=== PATIENT | female | born 1940 | race Caucasian/White ===

== ENCOUNTER 2019-05-28 09:45 | Inpatient (IN) | payer MEDICARE, BC ==
[2019-05-28] VITALS (399 sets, daily range): BP systolic 114–130; BP diastolic 49–95; PULSE 61–79; TEMP 98–98.3; O2SAT 55–99
[~2019-05-28] VITALS: Ht 149.9 cm; Wt 64.8 kg
--- NOTE | 2019-05-28 10:15 | NUR ---
PT BEING TRANSFERRED FROM [facility] BY EMS. REPORT RECEIVED FROM ODETTE AT [facility].
--- NOTE | 2019-05-28 10:45 | NUR ---
PT ARRIVED BY EMS FROM TRANSFER FROM [facility]. PT CURRENTLY HAS DOPAMINE INFUSING AT 10 MCG\KG\MIN AND EPINEPHRINE AT 0.05MG\KG\MIN. PT BEING TRANSCUTANEOUSLY PACED AT 70 BPM WITH MA OF 105. PT AWAKE, ALERT, AND ORIENTED. PT ON 4L NC AND DOES NOT APPEAR TO BE IN ANY ACUTE DISTRESS. PT TRANSFERRED TO ICU BED.
--- NOTE | 2019-05-28 11:15 | NUR ---
ANALIA WITH BILLING COLLECTIONS SPECIALIST ARRIVED TO URGENTLY TAKE PATIENT FOR PACEMAKER PLACEMENT. ASSISTED ANALIA WITH TRANSPORTING PATIENT TO BILLING COLLECTIONS SPECIALIST. DOPAMINE AND EPI GTT TRANSFERRED WITH PATIENT. ZOLL TRANSFERRED WITH PATIENT, PT TRANSCUTANEOUSLY PACED UNTIL ARRIVAL TO BILLING COLLECTIONS SPECIALIST. PT HAS RIGH IJ TLC IN PLACE AND SEAMUS.
[2019-05-28] MEDS ORDERED: ASPIRIN 81M81 MG/TA2 PO (11:33)
[2019-05-28] MEDS ORDERED: COREG12.5 MG PO (11:33)
[2019-05-28] MEDS ORDERED: NORVASC 10MG10 MG PO (11:33)
[2019-05-28] MEDS ORDERED: CENTRUM SILVER1 CTB PO (11:34)
[2019-05-28] MEDS ORDERED: HCTZ12.5TAB PO (11:34)
[2019-05-28] MEDS ORDERED: PREMARIN .3MG0.3 MG PO (11:35)
[2019-05-28] MEDS ORDERED: COZAAR100 MG PO (11:35)
[2019-05-28] MEDS ORDERED: GLUCOPHAGE500 MG/TAB PO (11:35)
[2019-05-28] MEDS ORDERED: SENNA-LAX8.6 MG PO (11:36)
[2019-05-28] MEDS ORDERED: TYLENOL 325MG325 MG PO (11:36)
--- NOTE | 2019-05-28 11:44 | NUR ---
SEE MERGE DOCUMENTATION FOR MEDICATION ADMINISTRATION TIMES AND INTRA/POST PROCEDURE SEDATION ASSESSMENTS.
--- NOTE | 2019-05-28 11:45 | NUR ---
PT'S SON CALLED AND UPDATED ON PATIENT'S STATUS.
[2019-05-28 12:33] LABS: INR 1.1 (0.8-3.0); PROTHROMBIN TIME 12.4 SECONDS (9.7-12.8)
--- NOTE | 2019-05-28 13:16 | NUR ---
REPORT RECEIVED FROM ANALIA IN MUSIC INDUSTRY INTERN. PT DESATED AND BECAME HYPOTENSIVE DURING PROCEDURE WITH SEDATION. PT GIVEN NARCAN. PT TOLERATED PROCEDURE WELL AFTER THAT. ANALIA DID NOTE THAT WHEN PACER PADS WERE REMOVED HE DID NOTE 4 QUARTER SIZED ROWE TO PATIENT'S CHEST FROM [facility]. PT NO LONGER REQUIRING EPI AND DOPAMINE GTT. PT AWAKE, ALERT, AND MOSTLY ORIENTED. VS: PULSE 70 (PACED), BP 123/60, O2 SAT 96-98% ON 2L NC.
--- NOTE | 2019-05-28 13:30 | NUR ---
PT RETURNED FROM BAG LOADER. PT SLIGHTLY DROWSY BUT EASILY AROUSABLE. PT HAS VENOUS SHEATH IN PLACE, BIJAL FROM BAG LOADER PRESENT TO REMOVE SHEATH. PT DENIES ANY PAIN AT THIS TIME. DAMIAN, FLOAT TENDER, PRESENT TO PERFORM ECHO. HR 63, BP 128/62, RESP 20, O2 SAT 97% ON 2L NC.
[2019-05-28] MEDS ORDERED: ZOLOFT 50MG50 MG PO (13:48)
--- NOTE | 2019-05-28 13:51 | NUR ---
PT'S SON CALLED AND UPDATED ON PATIENT'S STATUS.
--- NOTE | 2019-05-28 14:00 | NUR ---
VENOUS SHEATH FROM LEFT GROIN REMOVED. AREA COVERED WITH GAUZE AND TEGADERM. DRESSING CLEAN, DRY, AND INTACT. LEFT ARM SLING APPLIED TO REMIND PATIENT TO NOT MOVE LEFT ARM. PT AWAKE, ALERT AND ORIENTED. PT SLIGHLTY DROWSY. CALL LIGHT IN REACH.
[2019-05-28 15:24] LABS: HEMOGLOBIN 10.5 g/dl (12.5-16.0); MEAN CELL VOLUME 105 fl (80.0-100.0); MEAN CORPUSCULAR HEMOGLOBIN 35 pg (27.0-31.0); MEAN CORPUSCULAR HGB CONC 34 g/dl (33.0-37.0); MEAN PLATELET VOLUME 9.8 fl (7.4-10.4); PLATELET COUNT 212 K/mm3 (130-400); RED BLOOD COUNT 2.98 M/mm3 (4.10-5.30); REDCELL DISTRIBUTION WIDTH-CV 13.1 % (11.5-14.5)
[2019-05-28 15:29] LABS: HEMATOCRIT 31.3 % (37.0-47.0)
[2019-05-28 15:33] LABS: CALCIUM 8.4 mg/dL (8.4-10.2); CREATININE, serum 1.18 (0.52-1.25); MAGNESIUM 1.8 mg/dL (1.6-2.3); PHOSPHOROUS 4.2 mg/dL (2.5-4.5); POTASSIUM 3.7 mmol/L (3.4-5.0)
--- NOTE | 2019-05-28 15:56 | NUR ---
IV TO RIGHT AC REMOVED D/T HAVING CENTRAL LINE.
[2019-05-28 17:44] LABS: BAND 2 % (0-10); LYMPHOCYTE 17 % (20.0-51.0); NEUTROPHILS 75 % (42.0-75.2)
[2019-05-28 17:45] LABS: PLATELET ESTIMATE NORMAL (NORMAL)
--- NOTE | 2019-05-28 19:15 | NUR ---
Bedside report received from JOSE CARLOS Cameron. Patient resting in bed with no current needs. Will continue to monitor. Call light within reach.
--- NOTE | 2019-05-28 19:23 | NUR ---
BEDSIDE REPORT TO MARTIN BRANCH
[2019-05-29] VITALS (34 sets, daily range): BP systolic 122–156; BP diastolic 43–71; PULSE 65–79; TEMP 98.1–99.5; O2SAT 95–99
[2019-05-29 03:00] LABS: MUCOUS Present /lpf; PH 5 (5-8); SQUAMOUS EPITHELIAL 0-2 /hpf; URINE APPEARANCE Hazy; URINE BACTERIA None Seen /hpf; URINE BILIRUBIN Negative (NEGATIVE); URINE BLOOD 3+ (NEGATIVE); URINE COLOR Yellow; URINE GLUCOSE Negative (NEGATIVE); URINE KETONE Trace (NEGATIVE); URINE LEUKOCYTE ESTERASE 1+ (NEGATIVE); URINE NITRATE Negative (NEGATIVE); URINE PROTEIN(semi-quant) 1+ (NEGATIVE); URINE RBC 20-50 /hpf; URINE UROBILINOGEN Negative (NEGATIVE); URINE WBC 20-50 /hpf
[2019-05-29 03:03] LABS: COLLECTION METHOD CATHETER
--- NOTE | 2019-05-29 06:25 | NUR ---
Report called to JOSE CARLOS Hernandez on medical floor. Patient being transferred at this time. No further needs.
--- NOTE | 2019-05-29 08:50 | NUR ---
BELGICA NOTE: care taken over at beginning of shift. PT AOX4 but forgetful. was anxious this morning because she 'did not feel comfortable in new room'. nurse re-oriented pt and called son and who helped pt feel better. denies pain. sling to left arm. gauze and tape dressing to lt uper chest incision dry, skin folded over but intact. 3 blister areas, dry, dark red bruising around PPM site STADIUM ATTENDANT at this time. lt groin clean pressure gauze dressing intact. on 3L NC. PT encouraged to eat more bfast. independent with meal. RIJ intact.
[2019-05-29 11:56] LABS: BASO % 0.2 % (0.0-2.0); EOS # 0.1 (0.0-0.7); EOS % 0.7 % (0-4.0); GRAN # 9.8 (1.4-6.5); GRAN % 81.9 % (42.2-75.2); HEMOGLOBIN 10.5 g/dl (12.5-16.0); LYMPH # 1.2 (1.2-3.4); LYMPH % 9.9 % (20.0-51.0); MEAN CELL VOLUME 105 fl (80.0-100.0); MEAN CORPUSCULAR HEMOGLOBIN 35 pg (27.0-31.0); MEAN CORPUSCULAR HGB CONC 34 g/dl (33.0-37.0); MEAN PLATELET VOLUME 9.8 fl (7.4-10.4); MONO # 0.8 (0.1-0.6); MONO % 6.9 % (1.7-9.3); PLATELET COUNT 177 K/mm3 (130-400); RED BLOOD COUNT 2.98 M/mm3 (4.10-5.30); REDCELL DISTRIBUTION WIDTH-CV 13.2 % (11.5-14.5)
[2019-05-29 11:58] LABS: HEMATOCRIT 31.3 % (37.0-47.0)
[2019-05-29 12:07] LABS: CALCIUM 8.7 mg/dL (8.4-10.2); CREATININE, serum 0.73 (0.52-1.25); POTASSIUM 3.5 mmol/L (3.4-5.0)
--- NOTE | 2019-05-29 12:15 | NUR ---
First visit from the die try out worker. No needs right now.
--- NOTE | 2019-05-29 12:22 | NUR ---
SEAMUS DC'D @ 120 POER ORDER. PT TOLERATED PROCEDURE. PLACED IN BRIEF
--- NOTE | 2019-05-29 16:22 | NUR ---
pt reported need to void @ 1600. requested to transfer to [facility]. this nurse and aide attempted to toilet but pt had a hard time standing up. was able to steadily sit on side of bed. required help moving legs off bed. pt instead toiletted on bedpan and voided 200cc hazy yellow urine. post void residual scanned and found to be 20cc max volume. confusion noted with pt hallucinating a baby and in the room. remains oriented x3. mild anxiety about being alone noted.
--- NOTE | 2019-05-29 16:34 | NUR ---
Veterinary Technician Instructor met with patient to discuss discharge planning. Patient lives at [facility], which is an Independent Living building in [place]. Patient sees Dr. Flynn for primary care and has her medications delivered to her home in bubble packs. Patient has a walker and states she does okay at home but has had balance issues. DINORAH reviewed PT/OT recommendations with patient who advised SW call her son, Dakota (ph#[phone]) or , Nahum (ph#[phone]) to discuss placement. SW contacted Dakota who was with his father, Nahum. Dakota and Nahum are in agreement with PT/OT recommendations. First preference is [facility] and second preference is [facility] in [place]. Dakota reports he and his brother Arian are patient's DPOA-HC. Dakota advised [facility] would have a copy. DINORAH contacted IPR Director, Esmer and faxed referral to [facility]. DINORAH contacted Nisha, Independent Living Coordinator who advised she did not have a copy of patient's DPOA-HC documents. DINORAH to continue to follow.
--- NOTE | 2019-05-29 20:00 | NUR ---
At time of assessment, patient is awake in bed watching TV. She is alert but hallucinates there being spiders on the rivas where, in reality they are nail holes. She also thinks her neice is here to visit her. She is reoriented and seems to understand she is just hallucinating. She is oriented to self but does not know the year or that she is in the hospital. Her lung sounds are clear and heart sounds are normal/regular. She has 1+ edema bilaterally in lower extremities. She does not complain of any pain at this time. She is on 3L O2 via nasal cannula and appears to be breathing well at this time. Will continue to monitor.
[2019-05-30 03:44] VITALS: BP 151/72; PULSE 69; TEMP 99.9
--- NOTE | 2019-05-30 05:22 | NUR ---
Patient has slept throughout the majority of the night. She was awake in the beginning of the shift, having hallucinations but she has been pleasantly confused with no agitation. She has not complained of pain other than mild soreness in her pacemaker insertion site. Will continue to monitor.
--- NOTE | 2019-05-30 07:15 | NUR ---
Received report from offgoing shift.
[2019-05-30 07:41] LABS: BASO % 0.5 % (0.0-2.0); EOS # 0.2 (0.0-0.7); EOS % 2.3 % (0-4.0); GRAN # 5.7 (1.4-6.5); GRAN % 72.8 % (42.2-75.2); LYMPH # 1.2 (1.2-3.4); LYMPH % 15.3 % (20.0-51.0); MEAN CELL VOLUME 106 fl (80.0-100.0); MEAN CORPUSCULAR HGB CONC 33 g/dl (33.0-37.0); MEAN PLATELET VOLUME 10.3 fl (7.4-10.4); MONO # 0.7 (0.1-0.6); MONO % 8.7 % (1.7-9.3); PLATELET COUNT 161 K/mm3 (130-400); RED BLOOD COUNT 2.74 M/mm3 (4.10-5.30)
[2019-05-30 07:46] LABS: HEMOGLOBIN 9.7 g/dl (12.5-16.0); MEAN CORPUSCULAR HEMOGLOBIN 35 pg (27.0-31.0)
[2019-05-30 07:56] LABS: CALCIUM 8.5 mg/dL (8.4-10.2); CREATININE, serum 0.6 (0.52-1.25); POTASSIUM 3.2 mmol/L (3.4-5.0)
[2019-05-30 08:13] VITALS: BP 150/69; PULSE 73; TEMP 98
[2019-05-30 12:22] VITALS: BP 139/49; PULSE 69; TEMP 98.9
[2019-05-30 16:30] VITALS: BP 154/58; PULSE 68; TEMP 98.5
--- NOTE | 2019-05-30 18:16 | NUR ---
Patient is awake and alert sitting up in bed. Was assisted with cutting meat and arranging dishes on tray. Is denying pain. External female catheter is draining well. She states she has no discomfort to her tiffanie area. Call light and personal items are withinr reach.
--- NOTE | 2019-05-30 19:00 | NUR ---
Pt report received from Maria T BRANCH at bedside. Pt is resting peacefully in bed with no complaints at this time. Pt has a female external catheter in place that is draining well as evidenced by urine in suction canister and urined noted to be moving through the suction tubing. Clear yellow urine noted. Pt resting in bed with TV on and left arm sling not being worn. Pt educated on the importance of not moving her arm above her head or outward from body as these are movements that the sling is meant to prohibit due to her recent pacemaker placement surgery and medical restrictions on left arm movement. Pt states understanding. Call light within reach, No s/s of distress noted. Will continue to monitor.
[2019-05-30 19:16] VITALS: BP 158/61; PULSE 72; TEMP 97.9
[2019-05-30 23:21] VITALS: BP 140/76; PULSE 66; TEMP 98.5
--- NOTE | 2019-05-30 23:53 | NUR ---
Pt has been resting peacefully in bed during the shift, is A&Ox4, compliant with care and medication regimen. Pt was just cleaned up by the DOCUMENT MANAGEMENT SPECIALIST due to female external catheter apparently becoming clogged and Pt and bedding wet with urine. Earlier in the shift Pt family contacted this conventional mortgage underwriter asking to speak to Pt. This conventional mortgage underwriter took staff phone down to Pt room and allowed Pt to talk with son for a few minutes. When it became apparent that more time was needed this conventional mortgage underwriter provided education to family on how to directly call pt room and education to Pt on how to use room phone. This conventional mortgage underwriter apologized to family and Pt and explained that this was the only phone that other staff, other families, and physicians could contact this conventional mortgage underwriter on. Pt and family states understanding of need to use room phone. This conventional mortgage underwriter stayed with the Pt until family called back to ensure that Pt was able to answer phone. Pt remains in stable condition at this time. Will continue to monitor.
--- NOTE | 2019-05-31 01:50 | NUR ---
Pt resting peacefully in bed peacefully with eyes closed and no s/s of pain or distress noted. Call light within reach. Will continue to monitor.
--- NOTE | 2019-05-31 01:52 | NUR ---
Pt resting in bed with eyes open and resting peacefully with no complaints of pain and no s/s of distress noted. Pt is A&Ox4 and requests a new ice cup which this specification writer provides. Therapeutic conversation provided while Pt discussed her hopes of going home soon. Call light within reach and Pt appears to be compliant with her left arm restrictions. Dressing to Right IJ remains clean dry and intact. Dressing to left chest where pacemaker was placed remains clean dry and intact. Will continue to monitor.
[2019-05-31 03:16] VITALS: BP 126/57; PULSE 68; TEMP 98.4
--- NOTE | 2019-05-31 04:56 | NUR ---
Pt has recently fallen asleep after spending a good portion of the shift lying in bed awake alternating between watching tv and resting in her semi-lit room. Pt has remained in stable condition during the shift with no s/s of distress noted. Pt has had no compliants of pain or discomfort and dressings have remained clean dry and intact. Call light within reach. Will continue to monitor.
--- NOTE | 2019-05-31 07:09 | NUR ---
Pt report given to Yadira BRANCH at bedside.
[2019-05-31 08:06] LABS: BASO % 0.3 % (0.0-2.0); EOS # 0.3 (0.0-0.7); EOS % 3.5 % (0-4.0); GRAN # 7.2 (1.4-6.5); GRAN % 75.3 % (42.2-75.2); HEMOGLOBIN 10.2 g/dl (12.5-16.0); LYMPH # 1.2 (1.2-3.4); LYMPH % 12.9 % (20.0-51.0); MEAN CELL VOLUME 103 fl (80.0-100.0); MEAN CORPUSCULAR HEMOGLOBIN 35 pg (27.0-31.0); MEAN CORPUSCULAR HGB CONC 34 g/dl (33.0-37.0); MONO # 0.7 (0.1-0.6); MONO % 7.6 % (1.7-9.3); PLATELET COUNT 177 K/mm3 (130-400); RED BLOOD COUNT 2.92 M/mm3 (4.10-5.30); REDCELL DISTRIBUTION WIDTH-CV 12.8 % (11.5-14.5)
[2019-05-31 08:09] VITALS: BP 176/67; PULSE 72; TEMP 99.9
[2019-05-31 08:09] LABS: HEMATOCRIT 30.2 % (37.0-47.0)
[2019-05-31 08:12] LABS: CALCIUM 8.2 mg/dL (8.4-10.2); CREATININE, serum 0.54 (0.52-1.25); POTASSIUM 3.9 mmol/L (3.4-5.0)
--- NOTE | 2019-05-31 10:44 | NUR ---
Assessment complete. Pt resting in bed, awoke to my voice. She is alert and oriented x3, sense of time is innacurate. She denies pain at this time. Scabs on chest from external pacer are noted, no active bleeding or drainage. PAcer site dressing is CD&I, small amount of swelling is noted, pt denies pain in that area. External catheter removed per Drs orders. Noticable tremors while functioning, pt remains able to hold cups and take medications independently. She took her PO medications well. No other needs were expressed at this time. Call light is in reach.
[2019-05-31 12:01] VITALS: BP 157/71; PULSE 85; TEMP 98.2
[2019-05-31 16:12] VITALS: BP 157/59; PULSE 72; TEMP 98.2
--- NOTE | 2019-05-31 17:26 | NUR ---
Patient has been intermittently confused throughout the day, sometimes being aware of time and place, other times she is not. External catheter is no longer in place per Arsenio. Pt used bedpan to go the bathroom earlier due to extreme difficulty transferring her to the [facility]. She is very shaky and rigid while moving. Scabs from external pacemaker are open to air with no drainage or active bleeding. PAcemaker and dressing are CD&I. Right IJ removal site is CD&I. She has had no complaints of pain or discomfort throughout the day. She was moved to a room closer to the nurses station per hospitalist request due to her instability and intermittent confusion. No other needs at this time. Call light is in reach. Fall precautions in place.
--- NOTE | 2019-05-31 20:00 | NUR ---
At time of assessment, patient is awake in bed. She is alert and oriented to self, year and president but does not know that she is in the hospital. She is still having mild hallucinations, stating the nurse's aid had spiders on his arm where a tattoo is visible. Her heart sounds are normal/regular, lungs are clear, pulses 1 over 3. No edema is present and she does not complain of any pain. Her L arm remains in the sling and her pacemaker insertion site has bruising and dressing is CDI. She requests to use the bathroom and a bedpan is provided. She is continent of this void. Will continue to monitor.
[2019-05-31 20:09] VITALS: BP 163/71; PULSE 73; TEMP 98.8
[2019-05-31 22:59] VITALS: BP 167/47; PULSE 60; TEMP 98.7
[2019-06-01 03:26] VITALS: BP 173/74; PULSE 64; TEMP 98.6
--- NOTE | 2019-06-01 06:08 | NUR ---
Patient has slept for most of the night. She is still pleasantly confused and does not appear to be having hallucinations anymore. She has not complained of pain or any concerns. Will continue to monitor.
--- NOTE | 2019-06-01 07:41 | NUR ---
95% ON 2 LPM NC DECREASED TO 1 LPM NC. RN NOTIFIED
--- NOTE | 2019-06-01 07:45 | NUR ---
Assessment complete. Pt sitting up in bed eating breakfast, denies pain at this time, alert and oriented x 3. Left arm sling in place, dressing over left chest incision CDI. Saline lock IV to left AC without s/s of complications. No further needs reported. Call light in reach.
[2019-06-01 08:03] LABS: BASO % 0.5 % (0.0-2.0); EOS # 0.6 (0.0-0.7); EOS % 6.4 % (0-4.0); GRAN # 5.9 (1.4-6.5); GRAN % 66.9 % (42.2-75.2); HEMOGLOBIN 10.8 g/dl (12.5-16.0); LYMPH # 1.6 (1.2-3.4); LYMPH % 17.7 % (20.0-51.0); MEAN CELL VOLUME 103 fl (80.0-100.0); MEAN CORPUSCULAR HEMOGLOBIN 34 pg (27.0-31.0); MEAN CORPUSCULAR HGB CONC 33 g/dl (33.0-37.0); MEAN PLATELET VOLUME 9.6 fl (7.4-10.4); MONO # 0.7 (0.1-0.6); MONO % 8.3 % (1.7-9.3); PLATELET COUNT 175 K/mm3 (130-400); RED BLOOD COUNT 3.15 M/mm3 (4.10-5.30); REDCELL DISTRIBUTION WIDTH-CV 12.7 % (11.5-14.5)
[2019-06-01 08:07] LABS: CALCIUM 8.2 mg/dL (8.4-10.2); CREATININE, serum 0.48 (0.52-1.25); HEMATOCRIT 32.5 % (37.0-47.0); MAGNESIUM 2.1 mg/dL (1.6-2.3)
[2019-06-01 08:50] VITALS: BP 173/61; PULSE 67; TEMP 98
[2019-06-01 11:17] VITALS: BP 152/53; PULSE 72; TEMP 99.2
--- NOTE | 2019-06-01 11:18 | NUR ---
First visit from the cementer helper. No needs right now.
[2019-06-01] MEDS ORDERED: SEROQUEL 2525 MG/TAB PO (11:26)
[2019-06-01] MEDS ORDERED: LASIX 20MG TABL20 MG PO (11:27)
--- NOTE | 2019-06-01 12:41 | NUR ---
DINORAH collaborated with Hospitalist and Esmer, [facility] Director. Patient to discharge to [facility] today. DINORAH contacted patient's son, Dakota to provide update. DINORAH also provided update to Petrona at [facility]. Petrona reports she will notify the director of [facility]. No additional needs at this time.
--- NOTE | 2019-06-01 16:15 | NUR ---
Pt discharged to [facility] via chair. Report called to JOSE CARLOS Ramirez.
== END 2019-06-01 16:50 | DRG 242 ==
LOC: ICU 09:45 → MEDICAL 05-29 06:23
PROVIDERS: Internal Medicine Interventional Cardiology; Physician Assistant; ADMIT Student in an Organized Health Care Education/Training Program
PROC: 0JH606Z Insertion of Pacemaker, Dual Chamber into Chest Subcutaneous Tissue and Fascia, Open Approach (ICD-10-PCS; principal; 2019-05-28)
PROC: 02H63JZ Insertion of Pacemaker Lead into Right Atrium, Percutaneous Approach (ICD-10-PCS; 2019-05-28)
PROC: 02HK3JZ Insertion of Pacemaker Lead into Right Ventricle, Percutaneous Approach (ICD-10-PCS; 2019-05-28)
DX: I44.2 Atrioventricular block, complete (principal); J96.01 Acute respiratory failure with hypoxia; N39.0 Urinary tract infection, site not specified; N17.9 Acute kidney failure, unspecified; R44.3 Hallucinations, unspecified; J90 Pleural effusion, not elsewhere classified; R00.1 Bradycardia, unspecified; I10 Essential (primary) hypertension; E11.9 Type 2 diabetes mellitus without complications; Z90.710 Acquired absence of both cervix and uterus; Z79.82 Long term (current) use of aspirin; I95.9 Hypotension, unspecified; Z79.4 Long term (current) use of insulin; F32.9 Major depressive disorder, single episode, unspecified; R53.81 Other malaise; E87.6 Hypokalemia; I27.20 Pulmonary hypertension, unspecified
CPT/HCPCS: 99223-AI; 99232-AI; 99233-AI; 99239; A4216; A9284; C1785; C1894; C1898; J0690; J0696; J1650; J1940; J2250; J2310; J3010; J3480; J7030

== ENCOUNTER 2019-06-01 14:23 | Inpatient (IN) | payer MEDICARE, BC ==
[~2019-06-01] VITALS: Ht 149.9 cm; Wt 59.8 kg
[~2019-06-01 14:23] MED LIST: ASPIRIN 81M81 MG/TA2 PO; CENTRUM SILVER1 CTB PO; COREG12.5 MG PO; COZAAR100 MG PO; GLUCOPHAGE500 MG/TAB PO; HCTZ12.5TAB PO; LASIX 20MG TABL20 MG PO; NORVASC 10MG10 MG PO; PREMARIN .3MG0.3 MG PO; SENNA-LAX8.6 MG PO; SEROQUEL 2525 MG/TAB PO; TYLENOL 325MG325 MG PO; ZOLOFT 50MG50 MG PO
--- NOTE | 2019-06-01 17:00 | NUR ---
Received report from Carmela at [facility] Medical unit reporting the following: Patient is a full code; Had 3 BM's this morning that were all soft formed and Medium size, Needs O2 at times to keep SATS >92%; she takes pills whole with water; Is incontinent at times at HS; She is a max 2-3 assist; She is a diabetic and is on the Low SSI scale. Patient had a pace maker placed on 05/27 and currently has a sling in place to keep the left arm immobile while the pace maker site heals. Patient is alert to person, place and year, but is very forgetful.
[2019-06-01 17:03] VITALS: BP 148/62; PULSE 71; TEMP 97.9
--- NOTE | 2019-06-01 19:15 | NUR ---
Received report from JOSE CARLOS Ramirez. Pt was sitting up in bed and requested to use the bathroom. Pt was asssited on the bed pain at this time. Pt had finished her dinner tray so this was removed at this time at well. Pt has her call light within reach and she will call whennever she needs assistance off the bed kern.
--- NOTE | 2019-06-01 20:30 | NUR ---
Pt is currently sitting up in bed eathing crackers and cheese at this time. Pt requested more water and ice which was provided for her at this time. Pt son called her and she was able to talk to him for a while. Pt has her call light within reach and her bed is in lowest position and alarm is on.
--- NOTE | 2019-06-02 02:11 | NUR ---
Pt is currently sleeping in bed. Pt has oxygen in at this time. Pt has her call ight within reach and her bed is in lowest posiion and alarm is on.
[2019-06-02 06:37] VITALS: BP 162/63; PULSE 62; TEMP 97.9
--- NOTE | 2019-06-02 07:01 | NUR ---
Pt is currently lying in bed. Pt blood pressure was elevated this morning. Blood pressure was 162/63. Pt is now resting in bed. Pt call light is within reach and her bed is in lowest position and alarm is on . Will recheck pt blood pressure to see if the systolic reading has dropped.
--- NOTE | 2019-06-02 08:28 | NUR ---
Reported off to JOSE CARLOS Salamanca. Pt is currently sitting up in bed. Pt was called this morning about bringing in pt home medication Premarin 0.3 mg tabs. He stated he would drop them off at the ED later today. Pt has her call light within reach and her bed is in lowest position.
--- NOTE | 2019-06-02 11:11 | NUR ---
PT SITTING UP IN BED WORKING WITH OT. PT USES BED OSMAN. PT IS A/O X3, WEAKNESS IS EVIDENT. PT NEEDS ASSISTANCE TO ROLL SIDE TO SIDE. INCONTINENET BREIFS ON. BARRIOR CREAM USED FOR EXCORIATION TO BUTTOCKS. PT EATING AND DRINKING WITH NO C/O PAIN.
--- NOTE | 2019-06-02 15:37 | NUR ---
DINORAH met with the patient to complete initial intake due to the patient being new to [facility]. The patient resides at [facility] in [place] with her , Nahum. The patient does not have advanced directives in the EMR but reports they are completed. The patient has a walker and states she receives assistance with ADLs from Nahum. The patient's PCP is Dr. Flynn and receives medications from [facility]. The patient plans to return to [facility] at discharge. DINORAH contacted Nahum and Dakota to introduce oneself, inform them of SW roll on the team, and to give them SW contact information. DINORAH contacted Nisha at [facility]. DINORAH inquired about service offered once the patient discharges. Nisha reports they offer therapy services all they would need are the orders. Will continue to monitor. Dakota (son)[phone] Nahum() [phone] Nisha with [facility] ([phone]) )
[2019-06-02 18:17] VITALS: BP 164/57; PULSE 69; TEMP 97.2
--- NOTE | 2019-06-02 18:46 | NUR ---
REPORT TO ZANE
--- NOTE | 2019-06-02 22:09 | NUR ---
PATIENT IS DOING WELL TONIGHT. ALERT AND OREINTED. SOME CONFUSION NOTED. X3 BURN SITES TO L CHEST CDI AND OPEN TO AIR. PACEMAKER SITE IS COVERED WITH GUAZE AND TAPE. X2 ASSIST TO USE BEDSIDE COMMODE AND HAD MEDIUM LOOSE BROWN STOOL. TOOK SCHEDULED MEDICATIONS PRESCRIBED, REFUSED SENOKOT DUE TO LOOSE STOOLS. NO FURTHER NEEDS AT THIS TIME. PATIENT RESTING COMFORTABLY IN BED. CALL LIGHT WITHIN REACH. BED ALARM ON. WILL CONTINUE TO MONITOR.
[2019-06-03 05:03] VITALS: BP 188/71; PULSE 70; TEMP 98
--- NOTE | 2019-06-03 05:30 | NUR ---
PATIENTS MORNING BP WAS 188/70. CALL PLACED TO DR. HOLM, SCHEDULED NORVASC, COREG, AND LOSARTAN GIVEN EARLY PER ORDERS. WILL CONTINUE TO MONITOR.
--- NOTE | 2019-06-03 06:57 | NUR ---
Report from Yudith BRANCH.
--- NOTE | 2019-06-03 08:28 | NUR ---
PT UP IN RECLINER FOR BREAKFAST. PT TOOK AM MEDS DIRECTED. FULLY PARTICIPATING WITH THERAPY THIS AM. ATE 80 % OF MEAL THIS AM.
--- NOTE | 2019-06-03 10:18 | NUR ---
SW attended Team Conference meeting. The patient will be re-evaluated next week. SW met with the patient to discuss the team meeting and that she will be re-evaluated next week. The patient has no concerns at this time. SW attempted to contact the patient's son, Dakota to update him, left message. SW contacted the patient's to inform him of her progress. Will continue to monitor.
--- NOTE | 2019-06-03 13:00 | NUR ---
Visiting w/ pt & she was still eating lunch. She requested for PD/SW to cut up her chicken so she could eat it. Pt is set up assist (5) for eating.
--- NOTE | 2019-06-03 14:11 | NUR ---
DINORAH faxed updates to Nisha at [facility].
--- NOTE | 2019-06-03 15:18 | NUR ---
DINORAH contacted [facility] to inquire about the patient's DPOA-HC paperwork. Angie from medical records to fax paperwork.
[2019-06-03 18:05] VITALS: BP 146/51; PULSE 75; TEMP 97.6
--- NOTE | 2019-06-04 05:00 | NUR ---
Did well this shift. Is a 2 person heavy assist for transfers. Very unsteady-stiff legged-does not like to bend knees. Denies pain/shortness of breath/nausea. Just stated she was tired from therapy. No c/o at this time. call light in reach. Will monitor.
[2019-06-04 06:04] VITALS: BP 157/65; PULSE 59; TEMP 97.7
--- NOTE | 2019-06-04 09:42 | NUR ---
Pt in therapy will assess when available
--- NOTE | 2019-06-04 10:45 | NUR ---
Pt assessment complete. Pt is sitting up in the recliner upon entry, she is A/O x4. Pt denies any pain, just reports "soreness" to L chest. Sites CDI, no dressings on. LUE in sling. Pt denies N/V. Took pills without issues. No needs at this time. Call light within reach.
[2019-06-04 12:11] VITALS: BP 149/57; PULSE 65; TEMP 97.8
[2019-06-04 15:40] VITALS: BP 154/61; PULSE 70; TEMP 98.1
--- NOTE | 2019-06-04 19:08 | NUR ---
Pt had uneventful day. Denied pain. Worked with therapy without issues. Report given to JOSE CARLOS Ngo.
--- NOTE | 2019-06-04 19:11 | NUR ---
PATIENT UP IN CHAIR DURING CHANGE OF SHIFT REPORT FROM DAY SHIFT NURSECARRIE. NO NEEDS REPORTED AT TIME OF REPORT.
[2019-06-04 19:36] VITALS: BP 149/55; PULSE 83; TEMP 97.5
--- NOTE | 2019-06-04 19:45 | NUR ---
RECEIVED REPORT FROM DAY SHIFT NURSE IN ICUFAYE. WAITING FOR PATIENT'S TO ARRIVE VIA BED.
[2019-06-05 00:11] VITALS: BP 137/54; PULSE 66; TEMP 98.1
--- NOTE | 2019-06-05 02:50 | NUR ---
CALLED, CHECKING ON PATIENT'S CURRENT STATUS, INFORMING THAT PATIENT CONTINUES TO BE NONVERBAL, NO RESPONSE VERBALLY TO TACTILE STIMULI OR NAME CALLED, THAT BREATHING REMAINS NONLABORED & EVEN. VERBALIZED WANTING TO SPEAK WITH PROVIDER REGARDING PATIENT'S PROGNOSIS AND WHAT THE PLAN IS FOR PATIENT'S CARE DURING HOSPITAL STAY. NO OTHER PATIENT RELATED NEEDS REPORTED AT END OF CALL.
[2019-06-05 03:41] VITALS: BP 150/63; PULSE 76; TEMP 98.2
[2019-06-05 06:39] LABS: BASO # 0.1 (0.0-0.2); BASO % 0.7 % (0.0-2.0); EOS # 0.5 (0.0-0.7); EOS % 5.3 % (0-4.0); GRAN # 5.6 (1.4-6.5); GRAN % 62.4 % (42.2-75.2); HEMOGLOBIN 10.7 g/dl (12.5-16.0); LYMPH # 1.9 (1.2-3.4); LYMPH % 21.3 % (20.0-51.0); MEAN CELL VOLUME 104 fl (80.0-100.0); MEAN CORPUSCULAR HEMOGLOBIN 35 pg (27.0-31.0); MEAN CORPUSCULAR HGB CONC 33 g/dl (33.0-37.0); MEAN PLATELET VOLUME 9.8 fl (7.4-10.4); MONO # 0.9 (0.1-0.6); PLATELET COUNT 265 K/mm3 (130-400); REDCELL DISTRIBUTION WIDTH-CV 12.8 % (11.5-14.5)
[2019-06-05 06:48] LABS: CREATININE, serum 0.55 (0.52-1.25); MAGNESIUM 1.8 mg/dL (1.6-2.3); POTASSIUM 3.5 mmol/L (3.4-5.0)
[2019-06-05 06:50] LABS: HEMATOCRIT 32.3 % (37.0-47.0)
--- NOTE | 2019-06-05 08:00 | NUR ---
PATIENT SITTING UP IN THE CHAIR THIS MORNING. PATIENT DENIES PAIN. LEFT CHEST PACEMAKER INCISION CELL BIOLOGIST WITH EDGES WELL APPROXIMATED. 3 SMALL CLOSED SCABS TO LEFT CHEST CELL BIOLOGIST, NON-DRAINING. PATIENT TOOK MEDS WELL. CALL LIGHT WITHIN REACH. NO OTHER NEEDS AT THIS TIME.
--- NOTE | 2019-06-05 08:03 | NUR ---
PATIENT RESTING IN BED DURING CHANGE OF SHIFT REPORT GIVEN TO DAY SHIFT NURSELESA. BED ALARM ON.
--- NOTE | 2019-06-05 15:40 | NUR ---
SW received the patient's DPOA-HC from [facility] and placed it in the chart.
[2019-06-05 15:55] VITALS: BP 135/46; PULSE 63; TEMP 98.6
--- NOTE | 2019-06-05 19:29 | NUR ---
REPORT GIVEN TO JOSE CARLOS MORIN.
--- NOTE | 2019-06-05 20:00 | NUR ---
Received report from JOSE CARLOS Reich. Alert and oriented x4. Denies pain or discomfort at this time. Meds administered. 2+assist pt from chair to BSC and from BSC to bed using gait belt with difficulty, pt unable to bear weight on own without 2 person. Able to slightly move RL, unable to move LL. Meeds met at this time. Call light within reach.
[2019-06-06 06:31] VITALS: BP 169/63; PULSE 68; TEMP 97.5
--- NOTE | 2019-06-06 06:38 | NUR ---
Pt made no complaints throughout the shift. Call light frandy rosen.
--- NOTE | 2019-06-06 07:14 | NUR ---
Report given to JOSE CARLOS Lloyd.
--- NOTE | 2019-06-06 09:00 | NUR ---
No complaints except weakness. Working with therapy. Pacemaker incisional site CDI. Circular burn dixon x 3 to left upper chest are dry. States they are sore.
[2019-06-06 11:36] VITALS: BP 126/51; PULSE 65; TEMP 97.8
[2019-06-06 16:45] VITALS: BP 132/50; PULSE 63; TEMP 97.6
--- NOTE | 2019-06-06 18:00 | NUR ---
No complaints. Transfers with assist. Unsteady on feet.
--- NOTE | 2019-06-06 20:00 | NUR ---
Received report from JOSE CARLOS Lloyd. Alert and oriented. Pt sitting up in WC watching TV. 2+ assist with gait belt from WC to BSC to bed. Denies any pain at this time. With loose stools. Scheduled sennakot help. Other scheduled meds administered. Needs met at this time. Made pt comfortable in bed. Pacemaker incision site to left upper chest without s/s of infection. Call light within reach. Personal items on bedside table.
[2019-06-07 05:47] VITALS: BP 144/51; PULSE 63; TEMP 98.1
--- NOTE | 2019-06-07 05:56 | NUR ---
Pt had a large soft brown BM in brief. Brief and pad changed. Redness observed to tiffanie area. Barrier cream applied. Made pt comfortable in bed. Call light within reach.
--- NOTE | 2019-06-07 07:07 | NUR ---
Report given to JOSE CARLOS Lloyd.
[2019-06-07 11:30] VITALS: BP 145/47; PULSE 65; TEMP 97.7
[2019-06-07 15:11] VITALS: BP 140/57; PULSE 68; TEMP 98
--- NOTE | 2019-06-07 18:00 | NUR ---
Required two staff assist to transfer out of bed. Shaky and unsteady on feet. Needs cues to transfer with walker to chair. Left arm pacemaker precautions maintained. Incontinent of urine once this shift.
--- NOTE | 2019-06-07 19:30 | NUR ---
PATIENT RESTING IN BED DURING CHANGE OF SHIFT REPORT FROM DAY SHIFT NURSELISA. BED ALARM ON.
--- NOTE | 2019-06-07 20:00 | NUR ---
PATIENT STILL REQUIRES MAX ASSIST OF 2-3 STAFF WITH OUT OF BED TRANSFERS TO/FROM CHAIR/BSC. OBSERVING WEAKNESS TO BLE. DECREASED LUE MOVEMENT/USE D/T S/P PACEMAKER PLACEMENT. WEAKNESS OBSERVED TO BUE AND QING HAND MANAGER MECHANICAL, WITH EQUAL HAND MANAGER MECHANICAL OBSERVED. DENIES PAIN TO CHEST OR TO SX SITE/LUE. BED ALARM ON.
--- NOTE | 2019-06-08 01:28 | NUR ---
PATIENT RESTING WITH EYES CLOSED WITH BREATHING OBSERVED NONLABORED AND EVEN. DOES NOT AWAKEN WHEN ROOM ENTERED BY STAFF. BED ALARM ON
[2019-06-08 05:32] VITALS: BP 140/62; PULSE 69; TEMP 98.2
[2019-06-08 07:37] LABS: CALCIUM 9.5 mg/dL (8.4-10.2); CREATININE, serum 0.81 (0.52-1.25); POTASSIUM 4.2 mmol/L (3.4-5.0)
--- NOTE | 2019-06-08 07:38 | NUR ---
PATIENT RESTING IN BED FOR BREAKFAST DURING CHANGE OF SHIFT REPORT GIVEN TO DAY SHIFT NURSEFAYE. BED ALARM ON. SET UP BREAKFAST MEAL INORDER FOR PATIENT TO FEED HERSELF. NO OTHER NEEDS REPORTED.
--- NOTE | 2019-06-08 08:30 | NUR ---
Patient in bed resting. Alert and oriented x 3. Assessment complete. Patient has 3 circular wounds to left upper chest, per patient from external pacer. Left chest pacer site with edges well approximated. Patient denies pain at this time. Sling to left arm maintained. Denies further needs at this time.
--- NOTE | 2019-06-08 11:21 | NUR ---
Patient showered with therapy
--- NOTE | 2019-06-08 12:58 | NUR ---
Patient sitting up in recliner sleeping
--- NOTE | 2019-06-08 14:03 | NUR ---
x2 assist to bedside comode then back to recliner. Denies further needs at this time.
[2019-06-08 15:52] VITALS: BP 144/58; PULSE 67; TEMP 97.9
--- NOTE | 2019-06-08 16:05 | NUR ---
Lockstitch Back Maker met with patient to follow up from the weekend. Patient denies any concerns or questions. Patient reminds SW that she lives at [facility], which is Independent Living with her . SW to continue to follow.
--- NOTE | 2019-06-08 16:34 | NUR ---
Clinical Program Coordinator faxed updates to Nisha at [facility].
--- NOTE | 2019-06-08 18:46 | NUR ---
Patient has done well throughout the day. Minimal needs. Has been continent of urine and stool throughout the day. Denies pain at this time. Denies further needs at this time. Will report off to night time nanny.
[2019-06-08 20:06] VITALS: BP 163/81; PULSE 72; TEMP 98
--- NOTE | 2019-06-08 21:30 | NUR ---
Received report from JOSE CARLOS An. Pt is currently lying in bed. Pt has her call light within reach and her bed is in lowest position.
--- NOTE | 2019-06-09 02:00 | NUR ---
During hourly rounds pt stated that she needed to use the restroom. Pt was assisted to the bedside commode. Pt was 2 person transfer with gait belt and walker. Pt was able to use the commode and she has a small bowel movement at this time. Pt was assisted back to bed, pt has her call light within reach and her bed is in lowest position. Pt bed alarm is also on at this time.
[2019-06-09 05:32] VITALS: BP 156/64; PULSE 63; TEMP 97.8
--- NOTE | 2019-06-09 07:53 | NUR ---
Reported off to JOSE CARLOS Tanner. Pt was lying in bed awake at this time. Pt has her call light within reach and her bed is in lowest position.
[2019-06-09 16:55] VITALS: BP 129/49; PULSE 63; TEMP 97.7
--- NOTE | 2019-06-09 18:00 | NUR ---
Patient did well today. She seemed to be getting around better. No complaints of pain today. No complaints of nausea. She has been eating and drinking without nausea. No other changes at this time. Call light within reach.
--- NOTE | 2019-06-09 20:00 | NUR ---
PATIENT REQUIRES MAX X1-2 ASST FOR OUT OF BED ACTIVITIES FROM CHAIR/BSC TO BED. BEGINNING OF DAY, ABLE TO TOLERATE TRANSFERS X1 ASST FROM CHAIR TO BSC ADN BACK AGAIN. BED ALARM ON. DENIES ANY DISCOMFORT OR NEEDS AT THIS TIME.
--- NOTE | 2019-06-10 00:12 | NUR ---
PATIENT SLEEPING, DOES NOT AWAKEN WHEN DOOR TO ROOM IS OPENED BY STAFF. BED ALARM ON. BREATHING OBSERVED EVEN/NONLABORED.
--- NOTE | 2019-06-10 02:19 | NUR ---
PATIENT SLEEPING, DOES NOT AWAKEN WHEN ROOM ENTERED BY STAFF. OBSERVED BREATHING NONLABORED AND EVEN. BED ALARM ON.
[2019-06-10 05:27] VITALS: BP 142/68; PULSE 70; TEMP 97.8
--- NOTE | 2019-06-10 07:38 | NUR ---
PATIENT SITTING UP IN CHAIR DURING CHANGE OF SHIFT REPORT GIVEN TO DAY SHIFT NURSEREUBEN. CHAIR ALARM ON.
--- NOTE | 2019-06-10 10:22 | NUR ---
Pt awake and alert this morning, OT in room, no C/O pain at this time, shift assessments complete, left Pt call light in reach.
--- NOTE | 2019-06-10 15:34 | NUR ---
Patient resting in recliner at this time, call light in reach and alarm is set. Patient arrived to IPR from Medical at 3:00 PM today. Denies questions at this time. Esmer Grady visited with patient to update on IPR and to help answer any questions patient had. Will continue to monitor.
--- NOTE | 2019-06-10 16:40 | NUR ---
Senior Security Architect met with patient to review and provide copy of team conference notes. SW reviewed discharge date of 06/19/19 and recommendation for PT/OT Home Health. Patient is in agreement and would like DINORAH to reach out to [facility] to see if they have a preference on HH agency. DINORAH will follow up. Patient states she would like SW to call her son Dakota and denies any further questions or concerns at this time. DINORAH contacted Dakota to review discharge date and recommendations for HH. Dakota is in agreement and advised that [facility] is working on establishing a contract with a HH agency, but could not remember which one. DINORAH spoke with Dakota about scheduling a family meeting. Dakota is going to check his work schedule this evening for next week and DINORAH will follow up tomorrow. DINORAH provided new room number to Dakota.
[2019-06-10 17:46] VITALS: BP 125/49; PULSE 69; TEMP 97.8
--- NOTE | 2019-06-10 19:30 | NUR ---
PATIENT UP IN CHAIR DURING CHANGE OF SHIFT REPORT FROM DAY SHIFT NURSECARLINE. CHAIR ALARM ON. NO NEEDS REPORTED DURING REPORT.
--- NOTE | 2019-06-10 20:02 | NUR ---
Patient tolerated diet well. Family was able to call and talk with patient this evening. Denied questions at this time. Reported off to night nurse.
--- NOTE | 2019-06-10 20:45 | NUR ---
EXCORIATED PERIAREA/QING GROIN AREA CONTINUES, PATIENT DENIES PAIN OR ITCHING TO AREA BUT EXCORIATED WITH DARK PINK RASH, SOME PEELING OF SKIN WITH WHITISH DISCHARGE TO QING INNER LABIA, NO ODOR OBSERVED AND NO COMPLAINTS OF PAIN WITH CLEANING OF PERIAREA. CONTINUE TO APPLY CLEAR BARRIER CREAM. PATIENT STATES SHE THINKS SHE WAS TAKING ABX AFTER HER PACEMAKER SURGERY. BED ALARM CONTINUES.
--- NOTE | 2019-06-11 01:30 | NUR ---
PATIENT SLEEPING, DOES NOT AWAKEN WHEN DOOR TO ROOM IS OPENED BY STAFF. OBSERVED BREATHING NONLABORED AND EVEN. BED ALARM ON.
[2019-06-11 05:48] VITALS: BP 144/50; PULSE 67; TEMP 98.2
--- NOTE | 2019-06-11 07:14 | NUR ---
PATIENT RESTING IN BED DURING CHANGE OF SHIFT REPORT GIVEN TO DAY SHIFT NURSECOLIN. BED ALARM ON.
--- NOTE | 2019-06-11 09:15 | NUR ---
PATIENT UP TO CHAIR FOR BREAKFAST. OUT FOR THERAPY. EATING AND DRINKING PT DENIES NEEDS. AMBULATING WITH THERAPY.
--- NOTE | 2019-06-11 12:44 | NUR ---
Soda Drier Feeder contacted patient's son Dakota and scheduled family meeting for 06/16/19 @ 1300. DINORAH provided meeting date and time to Esmer, IPR Director. DINORAH contacted Nisha at [facility] and was advised that the therapy team at [facility] can provide PT/OT to patient in her apartment upon discharge. Nisha requested therapy notes and DINORAH faxed them. DINORAH to continue to follow.
[2019-06-11 16:53] VITALS: BP 145/46; PULSE 66; TEMP 98.1
--- NOTE | 2019-06-11 20:00 | NUR ---
At time of assessment, patient is awake in bed. She does not complain of any pain and she is alert and oriented x4 with no hallucinations. Lung sounds are clear, heart sounds normal/regular. No concerns at this time. Will continue to monitor.
--- NOTE | 2019-06-12 05:54 | NUR ---
Patient has had a restful, uneventful night. She got up to the bathroom one time but has slept throughout the night other than that. Will continue to monitor.
[2019-06-12 06:18] VITALS: BP 158/77; PULSE 73; TEMP 98.2
[2019-06-12 06:36] LABS: BASO # 0.1 (0.0-0.2); EOS # 0.4 (0.0-0.7); EOS % 5.8 % (0-4.0); GRAN # 3.1 (1.4-6.5); GRAN % 50.9 % (42.2-75.2); HEMOGLOBIN 10.9 g/dl (12.5-16.0); LYMPH # 1.8 (1.2-3.4); LYMPH % 30.6 % (20.0-51.0); MEAN CELL VOLUME 104 fl (80.0-100.0); MEAN CORPUSCULAR HEMOGLOBIN 34 pg (27.0-31.0); MEAN CORPUSCULAR HGB CONC 33 g/dl (33.0-37.0); MEAN PLATELET VOLUME 9.9 fl (7.4-10.4); MONO # 0.7 (0.1-0.6); MONO % 11.4 % (1.7-9.3); PLATELET COUNT 344 K/mm3 (130-400); REDCELL DISTRIBUTION WIDTH-CV 12.8 % (11.5-14.5)
[2019-06-12 06:47] LABS: HEMATOCRIT 33.3 % (37.0-47.0)
[2019-06-12 06:49] LABS: CALCIUM 8.9 mg/dL (8.4-10.2); CREATININE, serum 0.71 (0.52-1.25); MAGNESIUM 2.1 mg/dL (1.6-2.3); POTASSIUM 3.9 mmol/L (3.4-5.0)
--- NOTE | 2019-06-12 08:46 | NUR ---
BELGICA NOTE: PT AOX3. states mild discomfort to left shoulder from PPM placement. 2 assist ambulation this AM to BSC. required repeated cueing to correct gait. continent thus far. LCTA, dim bases. denies cough. excited for therapy
--- NOTE | 2019-06-12 14:37 | NUR ---
Box Brander followed up with patient before the weekend. SW spoke with patient about having PT/OT provided by [facility] in her home. Patient is in agreement and advised she has worked with that therapy team before. Patient states she feels she has more progress to make before discharge. SW called patient's son, Dakota to follow up before the weekend. SW advised the plan is to have PT/OT provided by [facility]'s therapy team. Dakota is in agreement if this is what patient would like to do as she has worked with them before. SW to continue to follow.
[2019-06-12 18:24] VITALS: BP 153/53; PULSE 72; TEMP 98.2
--- NOTE | 2019-06-12 19:00 | NUR ---
SHIFT REPORT FROM KAR Karimi RN
--- NOTE | 2019-06-12 20:00 | NUR ---
PT RESTING IN BED. NERVOUS AFFECT WITH FINE TREMORS. LT ARM RESTRICTIONS CONTINUE. LT PACEMAKER INCISION PTA- HEALING MILD BRUISING. DENIES PAIN. MAX 1 ASSIST TO BSC. PT HAS POOR BALANCE AND IS VERY WEAK NEEDS MUCH CUING FOR SAFETY. VOIDED. WEARS PULL UPS BUT CHANGED TO DIAPERS FOR THE HS TO AIR RED YEAST & EXCORIATED HOLLY AREA. ZINC OINTMENT APPLIED. READY FOR SLEEP. CALL LIGHT IN REACH. BED ALARM SET.
--- NOTE | 2019-06-13 | NUR ---
Pt has slept well during the night. Pt did use the bed kern with aide during the night. Pt has been on the bedside commode a couple of times. There were no changes noted on the pt. The 4 sites on the left side of her chest is still there and the incicion is well approximated. Pt heart sounds were normal S1 and S2 sounds, lungs sounds were clear. Pt groin was reddened, a warm towel was used to clean this area and a new applicaiton of Zinc oinment put on at this time. We did take the pt breif off to avoid redness.Pt has her call light within reach, SCD's are on , bed is in lowest position and alarm is on.
--- NOTE | 2019-06-13 04:15 | NUR ---
MAX 1 ASSIST WITH WHEELED WALKER TO BSC. PT UNABLE TO BALANCE ONCE STANDING. LEANS BACK. UNABLE TO CORRECT WITH CUING. URINARY INCONT IN DIAPERS AND BED PADS. VOIDED 400CC IN BSC CLEAR DILUTE URINE. ASSISTED BACK TO BED. WANTS SCD'S OFF NOW. CALL LIGHT IN REACH. BED ALARM SET.
[2019-06-13 04:43] VITALS: BP 138/49; PULSE 62; TEMP 98
[2019-06-13 05:01] LABS: FOLATE (FOLIC ACID) 19.7 ng/mL (>=4.0)
--- NOTE | 2019-06-13 06:13 | NUR ---
UP SEVERAL TIMES TONIGHT D/T LASIX AT 2100. RESTING WELL BETWEEN TIMES. DENIES NEED FOR ANY APIN MEDS.
[2019-06-13 08:30] VITALS: BP 128/46; PULSE 71
[2019-06-13 17:19] VITALS: BP 128/73; PULSE 72; TEMP 98.3
--- NOTE | 2019-06-13 19:05 | NUR ---
Received report from JOSE CARLOS Little. Pt was lying in bed eating her dinner at this time. Pt was assisted to the restroom 2 assist was needed. Pt has a small soft BM and voided. Pt is back in bed and will call when she is done with her dinner. Pt call light is within reach and bed is in lowest position.
--- NOTE | 2019-06-14 02:15 | NUR ---
Pt slept well during the night. Pt got up to go to the bedside commode at this time. Pt was cleaned using the personal cleansing wipes. Pt has been drinking fluids well during the night. Pt has her call light within reach and her bed is in lowest position.
[2019-06-14 06:20] VITALS: BP 146/52; PULSE 70; TEMP 98
--- NOTE | 2019-06-14 07:33 | NUR ---
Reported off to JOSE CARLOS Tanner. Pt is lying in bed, bed is in lowest position and alarm is on.
[2019-06-14 16:02] VITALS: BP 120/57; PULSE 69; TEMP 98.2
--- NOTE | 2019-06-14 18:00 | NUR ---
Patient needs a lot of reminders with transfers. She did not do well with moving her feet to transfer to the chair or the commode. She is not able to do trasfers with a walker either. Denied feeling weaker than usual today. Discussed her being able to use her left arm, explained how the restrictions work and that she should be doing more range of motion with her left arm since it has been 3 weeks since getting the pacemaker placed. The 4 wounds to her left chest and breast are not healing very well, they are deep and scabbed over, no drinage, no reddness, no bruising noted. No other changes at this time. Call light within reach.
--- NOTE | 2019-06-14 19:31 | NUR ---
PATIENT UP TO BSC DURING CHANGE OF SHIFT REPORT FROM DAY SHIFT NURSE, SUSAN. PATIENT PUT BACK TO BED, BED ALARM ON.
--- NOTE | 2019-06-14 20:00 | NUR ---
PATIENT UNABLE TO PIVOT TRANSFER WELL DUE TO GENERALIZED WEAKNESS AT END OF DAY, NURSING USED LIFT WITH TRANSFERS FROM BSC/BACK TO BED FOR SAFETY AND PATIENT COMFORT. PATIENT TOLERATED ACTIVITY WELL. BED ALARM ON.
--- NOTE | 2019-06-15 00:18 | NUR ---
PATIENT SLEEPING, DOES NOT AWAKEN WHEN ROOM ENTERED BY STAFF, OBSERVED BREATHING NONLABORED AND EVEN. BED ALARM ON.
--- NOTE | 2019-06-15 04:00 | NUR ---
PATIENT SLEEPING, DOES NOT AWAKEN WHEN ROOM ENTERED BY STAFF, OBSERVED BREATHING NONLABORED AND EVEN. BED ALARM ON.
[2019-06-15 06:24] VITALS: BP 141/48; PULSE 66; TEMP 98
--- NOTE | 2019-06-15 07:30 | NUR ---
PATIENT SITTING UP IN BED EATING BREAKFAST DURING CHANGE OF SHIFT REPORT GIVEN TO DAY SHIFT NURSELA NENA. BED ALARM ON.
--- NOTE | 2019-06-15 09:24 | NUR ---
PT AMBULATES VIA WALKER AND GAIT BELT WITH PHYSICAL THERAPY, STEADY GAIT, PT CONTINENT OF URINE AND STOOL. BM WAS LOOSE, LIGHT BROWN, LARGE AMOUNT. PT SHOWERED AND PROVIDED CARE INDEPENDENTLY, ONLY NEEDED ASSISTANCE WASHING HAIR AND HOLLY AREA. PT TOOK MEDS WITH SPOON. NO OTHER NEEDS AT THIS TIME. DENYING PAIN AND DISCOMFORT, ATE 100% OF BREAKFAST.
--- NOTE | 2019-06-15 10:20 | NUR ---
PT IN CHAIR, PT DENIES PAIN OR DISCOMFORT, FRESH ICE WATER BROUGHT IN, REPOSTITIONED IN CHAIR, NO OTHER NEEDS AT THIS TIME.
--- NOTE | 2019-06-15 13:43 | NUR ---
PT ASSISTED TO THE BATHROOM. CUES PROVIDED TO MOVE FEET, TO LEAN FORWARD AND PUT WEIGHT ON FEET, HOW TO TURN AND WHEN TO TURN. PT PULLED HER PANTS DOWN MOST OF THE WAY. PT WIPED HERSELF AND PERFORMED HAND HYGIENE WITH HAND FOAM. PT LACKS CONFIDENCE IN MOBILITY, APPEARS UNSURE ABOUT DOING TRANSFERS EVEN THOUGH WALKING LONG DISTANCE WITH PT.
--- NOTE | 2019-06-15 14:47 | NUR ---
Book Jacket Cover Machine Operator met with patient to follow up from the weekend. Patient states the weekend was quiet and she was happy to receive some mail from her family and friends. SW reminded patient of family conference scheduled for tomorrow. SW to continue to follow.
--- NOTE | 2019-06-15 16:21 | NUR ---
OFFERED TO PUT SCD'S ON PT, PT DECLINED STATING "I ONLY WEAR THOSE AT NIGHT". PT ASSISTED TO BATHROOM VIA WALKER AND GAIT BELT. PT REQUIRED PROMPTING TO MOVE FEET GOING INTO THE BATHROOM BUT NOT COMING BACK FROM THE BATHROOM. PT PULLED DOWN HER PANTS MOST OF THE WAY AND PULLED UP HER BRIEF WHEN SHE WAS FINISHED. PT UNABLE TO WIPE HERSELF. WALKING CONFIDENCE IMPROVED SINCE LAST ENCOUNTER. PT HAD ANOTHER FROTHY LIGHT BROWN BM MEDIUM AMOUNT. PT URINATED YELLOW URINE, ODOROUS, CLEAR.
[2019-06-15 16:47] VITALS: BP 134/49; PULSE 63; TEMP 97.8
--- NOTE | 2019-06-15 17:20 | NUR ---
PT HAD 2 FROTHY LIGHT BROWN BM, PT UNABLE TO WIPE HERSELF, ABLE TO PULL DOWN PANTS AND PULL UP PANTS MOST OF THE WAY, PT UTILIZE WALKER TO GET TO TOILET, LESS PROMPTING THAN EARLIER IN DAY NEEDED, PT REQUIRES MOTIVATION AND ENCOURAGEMENT TO FEEL CONFIDENT IN HER AMBULATION ABILITIES. PT HAS HAD MULTIPLE PHONE CALLS FROM FAMILY DURING THE DAY, PT APPEARS IN GOOD SPIRITS. PT REPORTING PAIN 2/10 IN L SHOULDER, DENIED WANT FOR ICE. SLIGHT YELLOW BRUISING AT PACEMAKER SITE. PT MOSTLY INDEPENDENT IN SHOWER, UNABLE TO WASH BOTTOM AND HAIR. FRESH ICE WATER BROUGHT INTO ROOM, NO OTHER NEEDS AT THIS TIME.
--- NOTE | 2019-06-15 18:45 | NUR ---
PT REPORT RECEIVED AT BEDSIDE BY LA NENA RN. PT IS TALKING ON THE PHONE, DENIES PAIN AND WANTS/NEEDS, PRESENTS IS STABLE CONDITION WITH NO S/S OF DISTRESS AT THIS TIME. CALL LIGHT IS AT PT SIDE. WILL CONTINUE TO MONITOR.
--- NOTE | 2019-06-15 22:42 | NUR ---
PT HAS BEEN RESTING PEACEFULLY IN BED SINCE SHIFT CHANGE AND IS NOTED TO PERIODICALLY BE USING THE PHONE TO COMMUNICATE WITH LOVED ONES. PT IS A&OX4, ABLE TO MAKE WANTS AND NEEDS KNOWS, IS COOPERATIVE WITH CARE AND COMPLIANT WITH MEDICATION REGIMEN. PT REPORTS THAT SHE SOMETIMES HAS DIFFICULTY PRESSING THE CALL LIGHT. THIS HOT SAW HELPER EDUCATED PT ON THE CALL BUTTON THAT IS ALSO ON THE BED RAIL AND PT IS NOTED TO BE ABLE TO PRESS THIS BUTTON EVIDENCED BY CALL LIGHT TRIGGERED. PT STATES UNDERSTANDING OF EDUCATION AND IS ALSO ENCOURAGE TO CALL OUT FOR STAFF IF THERE IS NO ANSWER HER PRESSING THE CALL LIGHT WITHIN 5 MINUTES (JUST IN CASE PT THINKS CALL LIGHT IS PRESSED BUT IT IS NOT). PT STATES SHE WILL USE THE CALL LIGHT FIRST AND THEN CALL OUT IF NO ANSWER. PT CONTINUES TO HAVE 3 SMALL BURN ARAYA NOTED ON HER RIGHT UPPER CHEST WHERE SHE HAD A TRANSCUTANEOUS PACE MAKER PLACED PRIOR TO HER TRANSFER TO THIS HOSPITAL. THIS HOT SAW HELPER PERFORMED PT'S ADMISSION ASSESSMENT WHEN SHE WAS ADMITTED A FEW WEEKS AGO AND THESE ROWE DO NOT APPEAR LARGER. HOWEVER THE MOST MEDIAL BURN IS NOTED TO ALSO APPEAR TO HAVE "SUNKEN" MORE THAN THIS HOT SAW HELPER RECALLED FROM HIS PREVIOUS ASSESSMENT WHICH MAY INDICATE THE UNDERLYING DAMAGED TISSUE BEING LYSED TO PROMOTE NEW CELL GROWTH AND HEALING. NO S/S OF INFECTION NOTED AROUND THESE WOUNDS. PT HAS CALL LIGHT AT HER SIDE AND STATES THAT SHE HAS BEEN TOLD THAT SHE CANNOT WALK WITHOUT ASSISTANCE. PT IS ALSO NOTED TO HAVE BEVERAGES AND PERSONAL ITEMS ON THE BEDSIDE TABLE WITHIN REACH. WILL CONTINUE TO MONITOR.
--- NOTE | 2019-06-16 02:00 | NUR ---
PT NOTIFED THIS J2EE DEVELOPER VIA CALL LIGHT THAT SHE NEEDED TO USE THE RESTROOM. PT ASSISTED TO HER FEET AND TO THE RESTROOM WHERE SHE VOIDED AND HAD A MEDIUM SMALL, FORMED, BM. PT REQUIRES CONSTANT STAND BY AND ONE PERSON ASSIST USING GAIT BELT AND 4WW TO AMBULATE. PT IS NOTED TO PERIODICALLY BEGIN TO LEAN BACKWARDS WHILE AMBULATING WHICH WOUYLD RESULT IN A FALL WITHOUT THIS J2EE DEVELOPER PRESENT TO STEADY HER AND KEEP HER UPRIGHT. PT IS NOTED TO TAKE SMALL STEPS (VARYING IN THEIR STEADINESS) WHILE AMBULATING REQUIRING HER TO EXERT MORE ENERGY AND SPEND MORE TIME ON HER FEET-- BOTH OF WHICH INCREASES HER FALL RISK. THIS J2EE DEVELOPER HAD TO PROVIDE VERBAL CUES IN TERMS OF HOLDING ONTO THE GRAB BARS ONCE IN BATHROOM, ENGAGING THE BRAKES ON HER WALKER BEFORE LETTING GO OF THE WALKER, WELL CUES AND ENCOURAGEMENT TO CONTINUE MOVING WHEN ON HER FEET SO TO GET HER BACK TO THE BED BEFORE SHE BECAME TO WEAK TO STAND. PT REQUIRED THIS J2EE DEVELOPER TO PERFORM TOILETING HYGIENE AND APPEARED CONFUSED ABOUT HOW TO WIPE HER HOLLY-AREA (AFTER VOIDING TO MAINTAIN HYGIENE) WHILE SITTING ON THE TOILET. VERBAL CUES PROVIDED ON SPEADING HER LEGS APART AND REACHING DOWN BETWEEN HER LEGS AND BEHIND THE TOILET SEAT TO BE ABLE TO REACH THIS AREA. PT SUCCEED BUT IT APPEARS IF PT ONLY PERFOMS SELF HOLLY-CARE (RELATED TO VOIDING) WHILE IN A STANDING POSITION AND POSSIBLY LEANING FORWARD. PT ASSISTED BACK TO BED. CALL LIGHT IS WITHIN REACH. WILL CONTINUE TO MONITOR. ,
[2019-06-16 05:56] VITALS: BP 149/50; PULSE 68; TEMP 98.9
--- NOTE | 2019-06-16 06:25 | NUR ---
PT WAS RESTING PEACEFULLY WITH EYES CLOSED AND WASA EASILY AROUSED WHEN THIS BAG SHAKER BEGAN TO LOG INTO THE CHARTING SYSTEM TO RECORD PT VS. PT HAS HAD A QUIET AND RESTFULL NIGHT WITH NO COMPLAINTS OF PAIN AND NO S/S OF DISTRESS NOTED. CALL LIGHT IS WITHIN REACH. WILL CONTINUE TO MONITOR
--- NOTE | 2019-06-16 08:52 | NUR ---
Patient taken by wheelchair for OT. No further needs expressed from patient.
--- NOTE | 2019-06-16 10:26 | NUR ---
Assessment complete. Patient A&Ox3. Denies pain and discomfort. VSS. Incision site left upper chest CDI. Patient sitting up in recliner, chair alarm on. Patient brief dry. Does need cueing when getting up and walking with walker. No further needs expressed from patient. Call light within reach. Fall precautions in place
--- NOTE | 2019-06-16 13:27 | NUR ---
Automotive Engineer attended family conference with IPR Director and the therapy team. Patient's son Dakota and Rudy participated by phone. Es[facility] Director opened the meeting by explaining purpose then PT/OT/ST reviewed patient's progress and some discharge recommendations. Dakota inquired about obtaining a home exercise program and if patient's medications have been changed. Plan is for patient to have PT/OT provided by [facility]. Discharge date is set for 06/19/19 and Dakota will provide transportation home.
[2019-06-16 16:42] VITALS: BP 148/52; PULSE 74; TEMP 97.8
--- NOTE | 2019-06-16 17:38 | NUR ---
Patient sitting in recliner eating dinner. No complaints of pain or discomfort. Patient has been calling for assistance with ambulation to the bathroom. Patient requiring cueing from nursing staff when ambulating. VSS. No further needs expressed from patient. Call light within reach. Fall precautions in place.
--- NOTE | 2019-06-16 19:30 | NUR ---
PATIENT RESTING IN BED DURING CHANGE OF SHIFT REPORT FROM DAY SHIFT NURSEGISSEL. BED ALARM ON.
--- NOTE | 2019-06-16 20:00 | NUR ---
PERIAREA AND QING GROIN HEALING, WITH PEELING TO QING OUT LABIA, APPLYING ZINC OXIDE WITH PERICARE PRN. PATIENT OBSERVED NEEDED FREQUENT CUEING WITH WALKER/GAIT WHEN AMBULATING TO AND FROM BATHROOM, BACK TO BED.
--- NOTE | 2019-06-17 01:00 | NUR ---
PATIENT SLEEPING, DOES NOT AWAKEN WHEN ROOM ENTERED BY STAFF. OBSERVED BREATHING NONLABORED AND EVEN, O2 ON PER NC. BED ALARM ON
[2019-06-17 04:52] VITALS: BP 145/53; PULSE 66; TEMP 98
--- NOTE | 2019-06-17 07:30 | NUR ---
PATIENT RESTING IN BED DURING CHANGE OF SHIFT REPORT GIVEN TO DAY SHIFT NURSEMAX. BED ALARM ON.
[2019-06-17 07:58] VITALS: BP 144/53; PULSE 66; TEMP 97.6
--- NOTE | 2019-06-17 10:44 | NUR ---
Patient is alert and oriented. denies any pain at this time. tolerated therapy well. call light bedside patient.
--- NOTE | 2019-06-17 15:55 | NUR ---
Shirt Sorter met with patient to review and provide copy of team conference notes. Patient to discharge home with therapy provided by [facility]. SW to continue to follow.
[2019-06-17 17:29] VITALS: BP 132/55; PULSE 70; TEMP 98.3
--- NOTE | 2019-06-17 17:59 | NUR ---
denies any pain. Zinc oxide was applied to patient labia, barrier oitment was applied to buttock. left chest incision intact. 1 assist to stand up, standby assist during ambulation. pt need cuing when performing task like toileting. Need help with food setup, feed self.
--- NOTE | 2019-06-18 05:34 | NUR ---
Received report from JOSE CARLOS Gloria. Pt is currently sitting up in chair. Pt has her call light within reach
[2019-06-18 05:38] VITALS: BP 153/45; PULSE 61; TEMP 97.6
--- NOTE | 2019-06-18 11:25 | NUR ---
Patient attending therapies this morning. Denies questions at this time.
[2019-06-18] MEDS ORDERED: K-TAB20 PO (12:55)
[2019-06-18] MEDS ORDERED: LASIX 20MG TABL20 MG PO (12:55)
[2019-06-18] MEDS ORDERED: MIRALAX510G PO (12:55)
[2019-06-18] MEDS ORDERED: MAG-OX 400400 MG/TAB PO (12:56)
[2019-06-18] MEDS ORDERED: ZINC OXIDE 28GM TOP (13:33)
--- NOTE | 2019-06-18 14:26 | NUR ---
Call place to patients PCP and Cardiology. PCP Dr. Gee Anglin is on medical Leave at this time so his office will find another provider to see patient in his absence. Awaiting a return call at this time. Cardiology, Dr. Louis was called and a follow up tele health visit is set for 06/25/19 at 2 PM at this time. Patient will be called prior to that visit to make sure she doesn't need to be seen physically by provider at that time instead.
[2019-06-18 15:46] VITALS: BP 128/52; PULSE 66; TEMP 97.8
--- NOTE | 2019-06-18 19:35 | NUR ---
Received report from JOSE CARLOS Ramirez. Pt currently lying in bed with call light within reach and bed in lowest position.
[2019-06-19 05:53] VITALS: BP 140/58; PULSE 66; TEMP 98.5
--- NOTE | 2019-06-19 07:12 | NUR ---
Pt has had a very good night. Pt has slept well during the night. Pt called out twice to go to the bathroom. Pt did well with a standby asisst. At this time cream was applied to the pt bottom. She did have some redness. Pt is in bed and has her call light within reach and her bed is in lowest position.
--- NOTE | 2019-06-19 09:10 | NUR ---
Patient resting in recliner, call light in reach and chair alarm set. Patient given morning meds and takes two at a time with a spoon and water. Patient denies questions at this time.
--- NOTE | 2019-06-19 10:18 | NUR ---
Call received from pcp Dr. Ley's place for follow up appointment for patient - set for June 26, 2019 at 11:00 AM.
--- NOTE | 2019-06-19 10:34 | NUR ---
The patient is to discharge today, 06/18, back to [facility] with PT/OT/SN provided by [facility]. DINORAH contacted and faxed discharge orders to [facility] at [facility]. DINORAH met with the patient and read the IM form outloud to the patient. The patient verbalized understanding and gave DINORAH approval to sign the form on her behalf. She was provided with a copy. Transport back home to be provided by her son, Dakota. No additional needs at this time.
--- NOTE | 2019-06-19 12:00 | NUR ---
Patient's bottom was blanchable, no open sores. Tiffanie area had some mild redness/was blanchable, and zinc ointment was applied to bottom and tiffanie area. Family was updated on the continued skin care needed to prevent any future sores. OT recommended a standard w/c cushion 1 to 2 " thick. This was communicated to family for them to put on patient's home recliner.
--- NOTE | 2019-06-19 13:34 | NUR ---
Discharge QIM scores were reviewed by the team. Code of 4 chosen for sit to stand was determined by team discussion to be the most usual performance for this patient during the assessment period. Code of 4 for chair/bed to chair transfer was determined by team discussion to be the most usual performance for this patient during the assessment period.--Esmer Del Toro, PD
--- NOTE | 2019-06-19 14:34 | NUR ---
Patient Health Summary, Discharge Summary, and Home Meds printed and reviewed with son Dakota and patient. Stressed importance of follow up appointments. Belongings gathered by LETICIA/Teodoro including glasses and personal clothing. Patient transported via wheelchair by Ashley/JOSE CARLOS and seatbelted for ride home with son Dakota and . Patient and son, Dakota denied questions.
== END 2019-06-19 12:30 | disposition home or self-care (01) | DRG 947 ==
LOC: MEDICAL 06-03 15:12
PROVIDERS: Physician Assistant; ADMIT Internal Medicine
DX: R53.81 Other malaise (principal); J96.01 Acute respiratory failure with hypoxia; N39.0 Urinary tract infection, site not specified; I44.2 Atrioventricular block, complete; J90 Pleural effusion, not elsewhere classified; N17.9 Acute kidney failure, unspecified; I95.9 Hypotension, unspecified; E11.9 Type 2 diabetes mellitus without complications; I10 Essential (primary) hypertension; F32.9 Major depressive disorder, single episode, unspecified; E87.6 Hypokalemia; F28 Other psychotic disorder not due to a substance or known physiological condition; R00.1 Bradycardia, unspecified; Z79.82 Long term (current) use of aspirin; Z79.84 Long term (current) use of oral hypoglycemic drugs; Z95.0 Presence of cardiac pacemaker; Z90.710 Acquired absence of both cervix and uterus
CPT/HCPCS: OP; 99222-AI; 99231-AI; 99232-AI; 99239; J1815